=== PATIENT | male | born 1980 | race Caucasian/White ===

== ENCOUNTER 2017-05-11 01:16 | Emergency (ER) | payer MEDICAID ==
[2017-05-11] MEDS ORDERED: Ondansetron 4 MG/2 ML SDV IVPUSH ONE (01:38)
[2017-05-11] MEDS ORDERED: Morphine 10 MG/ML Syringe IVPUSH ONE ×2 (01:45→04:04)
[2017-05-11] MEDS ORDERED: Ciprofloxacin in D5W 400 MG in Premix Bag 1 BAG IV ONE ×2 (02:06)
[2017-05-11] MEDS ORDERED: metroNIDAZOLE/Normal Saline 500 MG in Premix Bag 1 BAG IV ONE (02:18)
--- NOTE | 2017-05-11 17:10 | ER ---
HISTORY OF PRESENT ILLNESS: A 37-year-old male who comes in with his with complaints of abdominal pain that started 3 to 4 hours ago. It started a couple of hours after he ate a sub sandwich. The patient and his were at the [email or web address] this afternoon and early evening. They live in [place]. On the way home from the [email or web address] in [facility], he developed this abdominal pain and it became severe enough, they decided to stop here for evaluation. The patient does have a recent history of diverticulitis and has just finished his second course of antibiotics two days ago. He states he was doing better while on antibiotics. He has not been able to eat much solid food the entire month of April. The patient states that he feels a little sweaty and he has pressure in the epigastric area. OBJECTIVE: GENERAL APPEARANCE: The patient is awake and alert. He is morbidly obese. He is in no respiratory distress, but he appears uncomfortable. VITAL SIGNS: Are reviewed. Initially his blood pressure was in the 160/100 range. He is afebrile. LUNGS: Are clear. CARDIAC: Heart sounds distinct without murmurs. GI: Abdomen is diffusely mildly tender with palpation. Bowel sounds are extremely active. There is no guarding with palpation today. SKIN: Warm and dry. Shortly after the examination, the patient sat up and vomited a large amount of green vomitus. After this he started to feel somewhat better but he still states his abdominal pain was anywhere from 8 to 9/10. INITIAL TREATMENT PLAN: An IV was started. Zofran 8 mg was given IV and we gave the patient 5 mg of morphine. This resolved his nausea and brought his pain down to a two. We were going to order a CT of the abdomen, but the patient is too big to fit into the machine at 450 pounds. LABS: Ordered included a CBC showing a white count of 18,200, neutrophils are also elevated. Comprehensive metabolic panel shows slightly elevated liver enzymes. AST is 55. Blood sugar nonfasting is 150. DIAGNOSIS: Abdominal pain with what looks like diverticulitis with flare up. TREATMENT PLAN: The patient was given Cipro 400 mg IV. This was followed with Flagyl 500 mg IV. He is feeling much better over the course of this period of time. His pain started to creep back up to maybe a 4 on a 10 scale. We will give him morphine 5 mg once again IV and the patient will be discharged to go home with his driving him. They have instructions to contact their primary care provider's [facility] [place] with this information. They may need to be on more antibiotics since he has an obvious bacterial infection and most likely this is a recurrent flare-up of diverticulitis. The patient and his have no further questions. MARTHA/JOVAN /[id number]
== END 2017-05-11 04:10 | disposition home or self-care (01) ==
LOC: LB.ED 01:16
DX: R10.9 Unspecified abdominal pain (principal); Z87.19 Personal history of other diseases of the digestive system
CPT/HCPCS: 36415; 80053; 85025; 96365; 96367; 96375; 96376; 99284; J0744; J2270; J2405